=== PATIENT | female | born 1950 | race Caucasian/White ===

== ENCOUNTER 2021-08-28 07:03 | Day surgery (SDC) | payer MEDICARE, BC ==
[~2021-08-28 07:03] MED LIST: Lactated Ringers 1,000 ML IV SCH
[2021-08-28] MEDS ORDERED: fentaNYL 100 MCG/2 ML SDV ONE (07:35)
[2021-08-28] MEDS ORDERED: Propofol 200 MG/20 ML SDV ONE (07:35)
[2021-08-28] MEDS ORDERED: Lidocaine 2% 5 ML SDV ONE (07:35)
[2021-08-28 09:17] VITALS: BP 123/58; PULSE 53
== END 2021-08-28 09:05 | disposition home or self-care (01) ==
LOC: MW.SDS 07:03
PROVIDERS: ATTEND Surgery
DX: Z12.11 Encounter for screening for malignant neoplasm of colon (principal); K57.30 Diverticulosis of large intestine without perforation or abscess without bleeding; K64.8 Other hemorrhoids; I10 Essential (primary) hypertension; E78.00 Pure hypercholesterolemia, unspecified; K58.9 Irritable bowel syndrome, unspecified; M19.90 Unspecified osteoarthritis, unspecified site; G43.909 Migraine, unspecified, not intractable, without status migrainosus; Z86.010 Personal history of colon polyps; Z88.2 Allergy status to sulfonamides; Z88.0 Allergy status to penicillin; Z79.899 Other long term (current) drug therapy; Z79.83 Long term (current) use of bisphosphonates; Z79.84 Long term (current) use of oral hypoglycemic drugs; Z79.1 Long term (current) use of non-steroidal anti-inflammatories (NSAID); Z90.49 Acquired absence of other specified parts of digestive tract; Z98.890 Other specified postprocedural states
CPT/HCPCS: G0105; J2704; J3010; J7120; 00812; 99100